=== PATIENT | male | born 1985 | race Caucasian/White ===

== ENCOUNTER 2017-03-06 23:45 | Emergency (ER) | payer OTHER, MEDICAID ==
[~2017-03-06] VITALS: Ht 180.3 cm; Wt 99.3 kg
[2017-03-07] MEDS ORDERED: MAALOX/HYOSCYAMINE/LIDOCAINE 45 ML BTL PO ONE (00:30)
[2017-03-07] MEDS ORDERED: MAALOX/HYOSCYAMINE/LIDOCAINE 45 ML BTL ONE (00:34)
[2017-03-07] MEDS ORDERED: DIAZEPAM 5 MG TABLET PO ONE (01:30)
[2017-03-07] MEDS ORDERED: DIAZEPAM 5 MG TABLET ONE (01:38)
[2017-03-07 01:41] VITALS: BP 126/88
== END 2017-03-07 01:52 | disposition home or self-care (01) ==
LOC: ED 03-07 01:38
DX: K21.9 Gastro-esophageal reflux disease without esophagitis (principal); M54.6 Pain in thoracic spine; R06.6 Hiccough
CPT/HCPCS: 99283